=== PATIENT | female | born 1955 ===

== ENCOUNTER 2021-01-14 12:15 | Inpatient (IN) | payer OTHER ==
[~2021-01-14] VITALS: Ht 152.4 cm; Wt 68.0 kg
[2021-01-14] MEDS ORDERED: SYNTHROID75 MCG PO (14:37)
[2021-01-14] MEDS ORDERED: ACID REDUCER20 M1 PO (14:38)
[2021-01-14] MEDS ORDERED: ESTAZOLAM1 MG PO (14:38)
[2021-01-21] MEDS ORDERED: SYNTHROID50 MCG (09:19)
[2021-01-21] MEDS ORDERED: VITAMIN D3250 MCG (09:20)
[2021-01-21] MEDS ORDERED: FLUOXETINE HCL10 M1 (09:20)
== END 2021-01-25 12:15 | disposition home or self-care (01) | DRG 737 ==
LOC: OB/GYN 01-21 06:43 → O/R 01-21 06:43 → OB/GYN 01-21 09:45 → SURH 01-21 15:46 → OB/GYN 01-21 15:49
PROVIDERS: Surgery; ADMIT Obstetrics & Gynecology Gynecologic Oncology; ATTEND Obstetrics & Gynecology Gynecologic Oncology
PROC: 0UT70ZZ Resection of Bilateral Fallopian Tubes, Open Approach (ICD-10-PCS; 2021-01-21)
PROC: 0DTJ0ZZ Resection of Appendix, Open Approach (ICD-10-PCS; 2021-01-21)
PROC: 0DTP0ZZ Resection of Rectum, Open Approach (ICD-10-PCS; 2021-01-21)
PROC: 0UT20ZZ Resection of Bilateral Ovaries, Open Approach (ICD-10-PCS; principal; 2021-01-21 09:45)
PROC: 0DBN0ZZ Excision of Sigmoid Colon, Open Approach (ICD-10-PCS; 2021-01-21 09:45)
DX: C56.2 Malignant neoplasm of left ovary (principal); C78.5 Secondary malignant neoplasm of large intestine and rectum; C77.5 Secondary and unspecified malignant neoplasm of intrapelvic lymph nodes; D27.0 Benign neoplasm of right ovary; E03.8 Other specified hypothyroidism; R19.07 Generalized intra-abdominal and pelvic swelling, mass and lump; Z20.822 Contact with and (suspected) exposure to COVID-19

== ENCOUNTER 2021-02-24 20:18 | Emergency (ER) | payer OTHER ==
[~2021-02-24] VITALS: Ht 154.9 cm; Wt 63.5 kg
[~2021-02-24 20:18] MED LIST: ACID REDUCER20 M1 PO; ESTAZOLAM1 MG PO; FLUOXETINE HCL10 M1; SYNTHROID50 MCG; SYNTHROID75 MCG PO; VITAMIN D3250 MCG
[2021-02-25] MEDS ORDERED: PROTONIX40 MG PO (13:59)
[2021-02-25] MEDS ORDERED: LEVSIN/SL0.125 MG SL (13:59)
[2021-02-25] MEDS ORDERED: PEPCID AC20 MG PO (14:00)
[2021-02-25] MEDS ORDERED: INTESTINEX680 M1 PO (14:01)
== END 2021-02-25 14:33 | disposition home or self-care (01) ==
LOC: ER 20:18
DX: R10.9 Unspecified abdominal pain (principal); Z03.818 Encounter for observation for suspected exposure to other biological agents ruled out; C18.7 Malignant neoplasm of sigmoid colon; C56.2 Malignant neoplasm of left ovary

== ENCOUNTER 2021-02-27 01:22 | Inpatient (IN) | payer OTHER ==
[~2021-02-27] VITALS: Ht 154.9 cm; Wt 63.5 kg
[~2021-02-27 01:22] MED LIST changes: +INTESTINEX680 M1 PO; +LEVSIN/SL0.125 MG SL; +PEPCID AC20 MG PO; +PROTONIX40 MG PO
== END 2021-03-02 13:20 | disposition home or self-care (01) | DRG 389 ==
LOC: ER 01:22 → SURH 10:05 → SEC-K 10:05 → SURH 10:10
PROVIDERS: ADMIT Internal Medicine; ATTEND Internal Medicine
DX: K56.699 Other intestinal obstruction unspecified as to partial versus complete obstruction (principal); C56.2 Malignant neoplasm of left ovary; C78.5 Secondary malignant neoplasm of large intestine and rectum; Z20.822 Contact with and (suspected) exposure to COVID-19; E03.8 Other specified hypothyroidism

== ENCOUNTER 2021-03-06 13:08 | Inpatient (IN) | payer OTHER ==
[~2021-03-06] VITALS: Ht 154.9 cm; Wt 63.5 kg
== END 2021-03-12 14:07 | disposition home or self-care (01) | DRG 389 ==
LOC: ER 13:08 → SURG 03-07 14:44
PROVIDERS: ADMIT Internal Medicine; ATTEND Internal Medicine
DX: K56.690 Other partial intestinal obstruction (principal); C18.7 Malignant neoplasm of sigmoid colon; R10.9 Unspecified abdominal pain; Z20.822 Contact with and (suspected) exposure to COVID-19; E86.0 Dehydration; E87.8 Other disorders of electrolyte and fluid balance, not elsewhere classified; E03.8 Other specified hypothyroidism

== ENCOUNTER 2022-02-03 11:18 | Outpatient (CLI) | payer OTHER | END 2022-02-03 11:20 | disposition home or self-care (01) | LOC: SONOGRAMA 11:18 | PROVIDERS: ATTEND Pathology Anatomic Pathology & Clinical Pathology | DX: E04.2 Nontoxic multinodular goiter (principal) ==

== ENCOUNTER 2022-10-06 09:41 | Emergency (ER) | payer OTHER ==
[~2022-10-06] VITALS: Ht 154.9 cm; Wt 68.5 kg
[2022-10-06] MEDS ORDERED: LOSARTAN POTAS100 MG PO (10:19)
[2022-10-06] MEDS ORDERED: OMEPRAZOLE20 MG PO (10:20)
== END 2022-10-06 19:48 | disposition home or self-care (01) ==
LOC: ER 09:41
DX: R10.32 Left lower quadrant pain (principal); Z85.43 Personal history of malignant neoplasm of ovary; Z87.19 Personal history of other diseases of the digestive system; Z98.890 Other specified postprocedural states; Z91.013 Allergy to seafood; Z88.6 Allergy status to analgesic agent; E03.9 Hypothyroidism, unspecified; I10 Essential (primary) hypertension